=== PATIENT | male | born 1995 | race Caucasian/White ===

== ENCOUNTER 2025-01-19 13:32 | Emergency (ER) | payer BC ==
[2025-01-19 14:24] LABS: Absolute Eosinophils 0.3 K/uL (0-0.5); Absolute Lymphocytes (CBC) 2.4 K/uL (0.7-4.9); Absolute Monocytes 1.2 K/uL (0.1-1.3); Absolute Neutrophil 8.8 K/uL (1.8-8.0); Basophils % 0.3 % (0-1.3); Eosinophils % 2.4 % (0-4.4); Hematocrit 33.1 % (39.6-49.0); Hemoglobin 10.2 g/dL (13.6-17.9); Lymphocytes % 18.8 % (15.3-44.8); MCH 19.1 pg (27.0-35.0); MCHC 30.9 g/dL (32.0-36.0); MPV 8.1 fL (7.6-11.3); Monocytes % 9.2 % (3.3-12.3); Neutrophils % 69.3 % (41.7-73.7); Platelets 524 thou/uL (152-406); RBC Red Blood Cell Count 5.33 M/uL (4.33-5.43); Red Cell Distribution Width 20.1 % (12.1-15.2)
[2025-01-19 14:40] LABS: Albumin 3.1 g/dL (3.4-5.0); Albumin/Globulin Ratio 0.6 (1.1-1.8); Anion Gap 9.3 mEq/L (5.0-15.0); Bilirubin Total 0.4 mg/dL (0.2-1.0); Globulin 5.6 g/dL (2.3-3.5); Potassium 3.3 mEq/L (3.5-5.1); Protein, Total 8.7 g/dL (6.4-8.2)
--- NOTE | 2025-01-19 15:00 | RAD REPORT ---
EXAMINATION: CT ABDOMEN AND PELVIS WITH CONTRAST CLINICAL INDICATION: ab pain, rectal bleeding, ho UC TECHNIQUE: CT abdomen and pelvis was performed, after the administration of IV contrast, as per [facility] protocol. Axial, sagittal and coronal reconstructions were obtained. One or more of the following dose reduction techniques were used: Automated exposure control, adjustment of the mA and k V according to patient size, and iterative reconstruction. Unless otherwise specified, incidental findings do not require dedicated imaging follow-up. COMPARISON: No prior exam. FINDINGS: LOWER CHEST: The visualized lung bases are clear. LIVER: Normal in size and contour. No focal lesion. Grossly unremarkable gallbladder. SPLEEN: Normal size. No focal lesion. PANCREAS: No mass, ductal dilation, or juan-pancreatic fluid. ADRENALS: Normal; no mass. KIDNEYS: Normal size and contour. No hydronephrosis. GASTROINTESTINAL TRACT: There is a diffuse irregular thickened appearance of the entire colon. APPENDIX: Normal appendix. LYMPH NODES: Numerous enlarged pericolonic lymph nodes are present. MUSCULOSKELETAL: Mild to moderate L5-S1 spondylosis. IMPRESSION: Moderately severe diffuse pancolitis with multiple enlarged lymph nodes present in the pericolonic fa t. This is most compatible with underlying inflammatory bowel disease.
[2025-01-19 15:34] LABS: Anisocytosis 1+; Blood Morphology Comment NOTED (NOT SEEN); Platelet Estimate INCR; Poikilocytosis 1+; White Blood Cell Scan OK (OK)
[2025-01-19] MEDS ORDERED: METHYLPREDNISOLONE 125 MG INJ ONE (16:02)
[2025-01-19] MEDS ORDERED: NA CHLORIDE 0.9% 1,000 ML ONE (16:03)
[2025-01-19] MEDS ORDERED: NA CHLORIDE 0.9% 100 ML ONE (17:43)
[2025-01-19] MEDS ORDERED: PIPERACIL/TAZO 3.375 GM VIAL IV ONE (17:44)
[2025-01-19 17:52] LABS: PT Prothrombin Time 13.9 SECONDS (10-13.0); PTT, Activated Partial Thromb 24.3 SECONDS (27.2-37.4); Protime INR 1.23
--- NOTE | 2025-01-19 19:29 | EDPHYS ---
Physician Documentation [facility] Name: Jc Quiroz Age: 29 yrs Sex: Male : 1995 Arrival Date: 01/19/2025 Time: 13:32 Bed 5 Private MD: ED Physician Tonny Gonzáles HPI: 01/19 14:28 This 29 yrs old Male presents to ER via Ambulatory with complaints of Diarrhea, Bloody rt Stools, Abdominal Pain. 14:28 Patient with history of ulcerative colitis, not having a flare in over 7 years presents rt to the ED with abdominal pain, rectal bleeding as starting out last night, states that this is similar to his first episode of an ulcerative colitis flare. Denies nausea, vomiting, acute complaints, symptoms are moderate severity, no other aggravating alleviating factors.. Historical: - Allergies: 15:30 No Known Allergies; iw - Home Meds: 15:30 None [Active]; iw - PMHx: 15:30 ulcerative colitis; iw - Immunization history:: Adult Immunizations unknown. - Infectious Disease History:: Denies. - Family history:: not pertinent. - Social history:: Smoking status: unknown. ROS: 14:31 Constitutional: Negative for fever, chills, and weight loss, Cardiovascular: Negative rt for chest pain, palpitations, and edema, Respiratory: Negative for shortness of breath, cough, wheezing, and pleuritic chest pain, MS/Extremity: Negative for injury and deformity, Skin: Negative for injury, rash, and discoloration, Neuro: Negative for headache, weakness, numbness, tingling, and seizure, 14:31 Abdomen/GI: Positive for abdominal pain, rectal bleeding, Exam: 14:31 Constitutional: This is a well developed, well nourished patient who is awake, alert, rt and in no acute distress. Head/Face: Normocephalic, atraumatic. Chest/axilla: Normal chest wall appearance and motion. Nontender with no deformity. No lesions are appreciated. Cardiovascular: Regular rate and rhythm with a normal S1 and S2. No gallops, murmurs, or rubs. Normal PMI, no JVD. No pulse deficits. Respiratory: Lungs have equal breath sounds bilaterally, clear to auscultation and percussion. No rales, rhonchi or wheezes noted. No increased work of breathing, no retractions or nasal flaring. Skin: Warm, dry with normal turgor. Normal color with no rashes, no lesions, and no evidence of cellulitis. MS/ Extremity: Pulses equal, no cyanosis. Neurovascular intact. Full, normal range of motion. Neuro: Awake and alert, GCS 15, oriented to person, place, time, and situation. Cranial nerves II-XII grossly intact. Motor strength 5/5 in all extremities. Sensory grossly intact. Cerebellar exam normal. Normal gait. 14:31 Abdomen/GI: Mild tenderness diffusely without rebound, guarding, distention, Vital Signs: 13:45 BP 153 / 91; Pulse 121; Resp 19; Temp 98.9(O); Pulse Ox 100% on R/A; Weight 92.99 kg; iw Height 6 ft. 0 in. ; Pain 3/10; 16:00 BP 135 / 63; Pulse 96; Resp 17; Pulse Ox 100% on R/A; ap3 19:43 BP 134 / 76; Pulse 101; Resp 18 S; Temp 98.2(O); Pulse Ox 100% on R/A; ha1 13:45 Body Mass Index 27.80 (92.99 kg, 182.88 cm) iw 13:45 Pain Scale: Adult iw MDM: 13:46 Medical Screening Exam initiated rt 20:06 Differential diagnosis: Colitis, ulcerative colitis, abscess, diverticulitis. Data rt reviewed: vital signs, nurses notes, lab test result(s), EKG, radiologic studies. Consideration of Admission/Observation Escalation of care including admission/observation considered. Started patient on antibiotics, steroids. I recommended that the patient be admitted to the hospital. I discussed with the hospitalist who states that patient requires transfer for GI coverage. I discussed transferring with the patient, after much liberation, he stated that he strongly does not wish to be transferred at this time, wish to be started on oral medicines and he will try to follow-up tomorrow. I informed the patient that his condition may worsen including permanent damage to the colon requiring possible resection, colostomy, infection. He understands risks of leaving, has decision-making capacity. He understands that he return anytime if he develops worsening symptoms.. Management of patient was discussed with the following: Hospitalist: Does not wish to admit, recommends transfer for GI. I considered the following discharge prescriptions or medication management in the emergency department Medications were administered in the Emergency Department. See MAR. Independent interpretation of the following test(s) in the Emergency Department CT Scan: My interpretation is No bowel obstruction seen on interpretation of CT scan images. Care significantly affected by the following chronic conditions: Ulcerative colitis. Counseling: I had a detailed discussion with the patient and/or guardian regarding the historical points, exam findings, and any diagnostic results supporting the discharge/admit diagnosis, lab results, radiology results, the need to transfer to another facility. Response to treatment: the patient's symptoms have mildly improved after treatment. Refusal of service: The patient/guardian displays adequate decision making capability and despite a detailed discussion of alternatives, benefits, risks, and consequences refuses: Transfer for higher level of care. 01/19 13:50 Order name: CBC with Diff; Complete Time: 15:37 rt 01/19 13:50 Order name: CMP; Complete Time: 15:03 rt 01/19 13:50 Order name: Lipase; Complete Time: 15:03 rt 01/19 13:50 Order name: Type And Screen; Complete Time: 15:03 rt 01/19 15:34 Order name: CBC Smear Scan; Complete Time: 15:37 EDMS 01/19 16:53 Order name: Blood Culture Adult (2) rt 01/19 16:53 Order name: Lactate w/ 2H reflex if indic.; Complete Time: 18:17 rt 01/19 16:53 Order name: Protime (+inr); Complete Time: 18:17 rt 01/19 16:53 Order name: Ptt, Activated; Complete Time: 18:17 rt 01/19 13:50 Order name: CT Abd/Pelvis - IV Contrast Only; Complete Time: 15:03 rt 01/19 13:50 Order name: IV Saline Lock; Complete Time: 14:14 rt 01/19 13:50 Order name: Labs collected and sent; Complete Time: 14:14 rt 01/19 16:53 Order name: Accucheck; Complete Time: 17:38 rt 01/19 16:53 Order name: Cardiac monitoring; Complete Time: 17:38 rt 01/19 16:53 Order name: IV Saline Lock - Large Bore; Complete Time: 17:38 rt 01/19 16:53 Order name: O2 Per Protocol; Complete Time: 17:38 rt 01/19 16:53 Order name: O2 Sat Monitoring; Complete Time: 17:38 rt 01/19 16:53 Order name: Vital Signs; Complete Time: 17:38 rt Administered Medications: 16:10 Drug: NS 0.9% IV 1000 ml IV at 1 bolus Per protocol; to be given as a bolus over 60 ap3 minutes Route: IV; Rate: 1 bolus; Site: right forearm; 17:10 Follow up: IV Status: Completed infusion; IV Intake: 1000ml ap3 16:10 Drug: MethylPrednisoLONE IVP 125 mg IVP once Route: IVP; Site: right forearm; ap3 17:39 Follow up: Response: No adverse reaction ap3 17:51 Drug: Piperacillin-Tazobactam IVPB 3.375 grams IVPB once over 60 mins; (mix in NS 100 ap3 mL) Route: IVPB; Infused Over: 60 mins; Site: right antecubital; 18:51 Follow up: IV Status: Completed infusion; IV Intake: 100ml ap3 19:46 Follow up: Response: No adverse reaction; IV Status: Completed infusion ha1 Disposition Summary: 01/19/25 19:29 Discharge Ordered Notes: Location: Home rt Problem: new rt Symptoms: have improved rt Condition: Fair rt Diagnosis - Pancolitis rt - Ulcerative colitis rt Followup: rt - With: Private Physician - When: Tomorrow - Reason: Discharge Instructions: - Discharge Summary Sheet rt - Colitis rt Forms: - Medication Reconciliation Form rt - Antibiotic Education rt - Prescription Opioid Use rt - Patient Portal Instructions rt - Leadership Thank You Letter rt Prescriptions: - Augmentin 875-125 mg Oral Tablet - take 1 tablet ORAL route every 12 hours for 10 days; 20 tablet; Refills: 0, rt Product Selection Permitted - Prednisone 20 mg Oral Tablet - take 2 tablets ORAL route once daily for 5 days; 10 tablet; Refills: 0, Product rt Selection Permitted Signatures: Dispatcher [employer] Leigha Martinez RN RN iw Prokisch, Amanda, RN RN ap3 Liv Duran RN RN ha1 Tonny Gonzáles MD MD rt Corrections: (The following items were deleted from the chart) 13:50 13:50 CBC+H.LAB.BRZ ordered. EDMS EDMS 13:50 13:50 COMPREHENSIVE METABOLIC PANEL+C.LAB.BRZ ordered. EDMS EDMS 13:50 13:50 LIPASE+C.LAB.BRZ ordered. EDMS EDMS 13:50 13:50 TYPE AND SCREEN+BB.LAB.BRZ ordered. EDMS EDMS 13:50 13:50 Abdomen Pelvis W Con+CT.RAD.BRZ ordered. EDMS EDMS
--- NOTE | 2025-01-19 19:29 | ER ---
Nurse's Notes [facility] Name: Jc Quiroz Age: 29 yrs Sex: Male : 1995 Arrival Date: 01/19/2025 Time: 13:32 Bed 5 Private MD: Diagnosis: Pancolitis;Ulcerative colitis Presentation: 01/19 13:45 Chief complaint: Patient states: started on the , feeling bad, diarrhea, yesterday iw started passing blood yesterday , dx with UC in 2018 , not on meds. Coronavirus screen: At this time, the client does not indicate any symptoms associated with coronavirus-19. Ebola Screen: No symptoms or risks identified at this time. 13:45 Method Of Arrival: Ambulatory iw 13:47 Initial Sepsis Screen: Does the patient meet any 2 criteria? HR > 90 bpm. Does the iw patient have a suspected source of infection? No. Patient's initial sepsis screen is negative. Risk Assessment: Do you want to hurt yourself or someone else? Patient reports no desire to harm self or others. Onset of symptoms was January 13, 2025. 13:47 Acuity: NELIDA 3 iw Historical: - Allergies: 15:30 No Known Allergies; iw - Home Meds: 15:30 None [Active]; iw - PMHx: 15:30 ulcerative colitis; iw - Immunization history:: Adult Immunizations unknown. - Infectious Disease History:: Denies. - Family history:: not pertinent. - Social history:: Smoking status: unknown. Screenin:48 [facility] ED Fall Risk Assessment (Adult) History of falling in the last 3 months, ph including since admission No falls in past 3 months (0 pts) Confusion or Disorientation No (0 pts) Intoxicated or Sedated No (0 pts) Impaired Gait No (0 pts) Mobility Assist Device Used No (0 pt) Altered Elimination No (0 pt) Score/Fall Risk Level 0 - 2 = Low Risk Oriented to surroundings, Maintained a safe environment, Hourly rounding (assess needs \T\ fall precautionary measures) done. Abuse screen: Denies threats or abuse. Denies injuries from another. Nutritional screening: No deficits noted. Tuberculosis screening: No symptoms or risk factors identified. Assessment: 16:09 General: Appears in no apparent distress. Behavior is calm, cooperative, appropriate ap3 for age. Pain: Denies pain. Neuro: Level of Consciousness is awake, alert, obeys commands, Oriented to person, place, time, situation, Appropriate for age. Cardiovascular: Patient's skin is warm and dry. Respiratory: Airway is patent Respiratory effort is even, unlabored, Respiratory pattern is regular, symmetrical. GI: Reports diarrhea, rectal bleeding, bloody stool. 18:55 Reassessment: Patient and/or family updated on plan of care and expected duration. Pain ap3 level reassessed. Patient is alert, oriented x 3, equal unlabored respirations, skin warm/dry/pink. 19:43 Reassessment: Patient and/or family updated on plan of care and expected duration. Pain ha1 level reassessed. Patient is alert, oriented x 3, equal unlabored respirations, skin warm/dry/pink. Patient states feeling better. Patient states symptoms have improved. Vital Signs: 13:45 BP 153 / 91; Pulse 121; Resp 19; Temp 98.9(O); Pulse Ox 100% on R/A; Weight 92.99 kg; iw Height 6 ft. 0 in. ; Pain 3/10; 16:00 BP 135 / 63; Pulse 96; Resp 17; Pulse Ox 100% on R/A; ap3 19:43 BP 134 / 76; Pulse 101; Resp 18 S; Temp 98.2(O); Pulse Ox 100% on R/A; ha1 13:45 Body Mass Index 27.80 (92.99 kg, 182.88 cm) iw 13:45 Pain Scale: Adult iw ED Course: 13:36 Patient arrived in ED. im 13:41 Tonny Gonzáles MD is Attending Physician. rt 13:47 Triage completed. iw 14:14 Type And Screen Sent. bc6 14:14 CBC with Diff Sent. bc6 14:14 CMP Sent. bc6 14:14 Lipase Sent. bc6 14:14 Initial lab(s) drawn, by me, sent to lab. T\T\S collected, blood band applied to patient. bc6 Inserted saline lock: 20 gauge in right antecubital area, using aseptic technique. Blood collected. Flushed with 10 mL NS. 14:22 CT Abd/Pelvis - IV Contrast Only In Process Unspecified. EDMS 15:30 Arm band placed on. iw 15:59 Shazia Rosa, RN is Primary Nurse. ap3 16:10 Patient has correct armband on for positive identification. Bed in low position. Call ap3 light in reach. Side rails up X 1. Provided Education on: medications prior to administration . Pulse ox on. NIBP on. 17:25 First set of blood cultures drawn by me. ap3 17:38 Second set of blood cultures drawn by me. ap3 19:45 No provider procedures requiring assistance completed. IV discontinued, intact, ha1 bleeding controlled, No redness/swelling at site. Pressure dressing applied. 19:46 Report given to Matthew RN. ap3 Administered Medications: 16:10 Drug: NS 0.9% IV 1000 ml IV at 1 bolus Per protocol; to be given as a bolus over 60 ap3 minutes Route: IV; Rate: 1 bolus; Site: right forearm; 17:10 Follow up: IV Status: Completed infusion; IV Intake: 1000ml ap3 16:10 Drug: MethylPrednisoLONE IVP 125 mg IVP once Route: IVP; Site: right forearm; ap3 17:39 Follow up: Response: No adverse reaction ap3 17:51 Drug: Piperacillin-Tazobactam IVPB 3.375 grams IVPB once over 60 mins; (mix in NS 100 ap3 mL) Route: IVPB; Infused Over: 60 mins; Site: right antecubital; 18:51 Follow up: IV Status: Completed infusion; IV Intake: 100ml ap3 19:46 Follow up: Response: No adverse reaction; IV Status: Completed infusion ha1 Medication: 16:10 VIS not applicable for this client. ap3 Intake: 17:10 IV: 1000ml; Total: 1000ml. ap3 18:51 IV: 100ml; Total: 1100ml. ap3 Outcome: 19:29 Discharge ordered by . rt 19:45 Discharged to home ambulatory, with family, ha1 19:45 Condition: stable 19:45 Discharge instructions given to patient, Instructed on discharge instructions, follow up and referral plans. medication usage, Demonstrated understanding of instructions, follow-up care, medications, Prescriptions given X 2, 19:47 Patient left the ED. ha1 Signatures: Dispatcher [employer] EDMS Leigha Wood RN RN Alexandra Joseph RN RN Shazia Rosa RN RN ap3 Liv Duran RN RN ha1 Tonny Gonzáles MD MD rt Malorie Lou bc6 Shilpa oFwler
[2025-01-19 19:51] VITALS: O2SAT 100
[2025-01-19 19:55] VITALS: BP 134/76; TEMP 98.2
== END 2025-01-19 19:47 | disposition home or self-care (01) ==
LOC: ER 13:32
DX: K51.00 Ulcerative (chronic) pancolitis without complications (principal)
CPT/HCPCS: 87040 ×2; 85025; 36415; 86900; 86850; 85610; 86901; 83605; 85730; 83690; 80053; 74177; Q9967; J2543; J2919; J7030